=== PATIENT | female | born 1990 | race Caucasian/White ===

== ENCOUNTER 2022-06-08 12:23 | Day surgery (SDC) | payer MEDICAID ==
[~2022-06-08] VITALS: Ht 165.1 cm; Wt 80.8 kg
[2022-06-08] MEDS ORDERED: SODIUM CHLORIDE 0.9% 1,000 ML IV ONE (12:30)
[2022-06-08 12:47] LABS: COVID AG,FIA SOURCE NASOPHARYNGEAL
[2022-06-08] MEDS ORDERED: FentaNYL CITRATE PF 100 MCG/2 ML VIAL ONE (14:13)
[2022-06-08] MEDS ORDERED: MIDAZOLAM HCL 2 MG/2 ML VIAL ONE ×2 (14:13)
== END 2022-06-08 15:35 | disposition home or self-care (01) ==
LOC: SURGERY 12:23
PROVIDERS: ATTEND Internal Medicine Gastroenterology
DX: K62.5 Hemorrhage of anus and rectum (principal); K64.0 First degree hemorrhoids; K62.89 Other specified diseases of anus and rectum; Z20.822 Contact with and (suspected) exposure to COVID-19; Z98.890 Other specified postprocedural states
CPT/HCPCS: 45378; 87426; 84703; C9803; J3010; J2250